=== PATIENT | female | born 1945 | race Caucasian/White ===

== ENCOUNTER → 2021-04-19 | Outpatient (CLI) | payer MEDICARE | LOC: KOH-I 14:44 | DX: M25.571 Pain in right ankle and joints of right foot (principal); M25.551 Pain in right hip; M19.071 Primary osteoarthritis, right ankle and foot | CPT/HCPCS: 73610; 73630 ==

== ENCOUNTER → 2021-05-13 | Outpatient (CLI) | payer MEDICARE | LOC: KOH-I 13:42 | DX: M21.961 Unspecified acquired deformity of right lower leg (principal); M25.371 Other instability, right ankle; R53.1 Weakness | CPT/HCPCS: 73721 ==